=== PATIENT | male | born 1945 | race Hispanic/Latino ===

== ENCOUNTER 2019-06-15 12:16 | Observation (INO) | payer MEDICARE ==
--- NOTE | 2019-06-13 10:50 | Anesthesia Consultation ---
Anesthesia Consult and Med Hx Date of service: 06/15/19 - Airway Anesthetic Teeth Evaluation: Good, Crowns ROM Head & Neck: Adequate Mental/Hyoid Distance: Adequate Mallampati Class: Class II Intubation Access Assessment: Good - Pre-Operative Health Status ASA Pre-Surgery Classification: ASA3 Proposed Anesthetic Plan: General - Pulmonary Hx Smoking: Yes (STOPPED X 40 YRS) Hx Sleep Apnea: No (RUDDY PRE SCREEN HIGH RISK.) - Cardiovascular System Hx Hypertension: Yes (X 10 YRS) Hx Coronary Artery Disease: Yes (Stent in 2014 and in 2016. 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 Denies sympto) Hx Heart Attack/AMI: No (Pt states can climb two flights of stairs) - Endocrine Hx Non-Insulin Dependent Diabetes: Yes Hx Hypothyroidism: Yes (ON DAILY MEDS (THYROID REMOVED DUE TO CANCER)) - Other Systems Hx Cancer: Yes (Thyroid)
[2019-06-13 11:07] LABS: Basophils # (Auto) 0.1 K/mm3 (0.0-0.1); Basophils % (Auto) 0.6 % (0.0-1.8); Eosinophils # (Auto) 0.1 K/mm3 (0.0-0.4); Eosinophils % (Auto) 1.4 % (0.0-4.3); Hematocrit 40.8 % (35.5-45.6); Hemoglobin 13.7 gm/dl (11.8-15.2); Lymphocytes # (Auto) 1.4 K/mm3 (1.2-5.4); Lymphocytes % (Auto) 17.5 % (13.4-35.0); Mean Corpuscular HGB Conc 34 % (32-34); Mean Corpuscular Volume 95 fl (84-94); Monocytes # (Auto) 0.7 K/mm3 (0.0-0.8); Monocytes % (Auto) 8.5 % (0.0-7.3); Platelet Count 192 K/mm3 (140-440); Red Blood Count 4.32 M/mm3 (3.65-5.03); Red Cell Distribution Width 13.2 % (13.2-15.2)
[2019-06-13 11:15] LABS: INR 1.04 (0.87-1.13)
[2019-06-13 11:16] LABS: Partial Thromboplastin Time 30.5 Sec. (24.2-36.6)
[2019-06-13 11:28] LABS: Alanine Aminotransferase 59 units/L (7-56); Albumin 3.9 g/dL (3.9-5); BUN/Creatinine Ratio 21; Blood Urea Nitrogen 19 mg/dL (9-20); Calcium 10.4 mg/dL (8.4-10.2); Hemolysis Index 16
[2019-06-15] MEDS ORDERED: dexAMETHasone 20 MG/5 ML VIAL ONE (12:25)
[2019-06-15] MEDS ORDERED: fentaNYL 100 MCG/2 ML INJ ONE (12:25)
[2019-06-15] MEDS ORDERED: LIDOCAINE MPF (2%) 20 MG/1 ML VIAL 5 ML ONE (12:25)
[2019-06-15] MEDS ORDERED: ONDANSETRON 4 MG/2 ML INJ ONE (12:25)
[2019-06-15] MEDS ORDERED: PROPOFOL 200 MG/20 ML VIAL IV ONE (12:25)
[2019-06-15] MEDS ORDERED: HYDROmorphone 1 MG/1 ML INJ ONE ×4 (12:44→17:01)
--- NOTE | 2019-06-15 12:44 | Anesthesia Day of Surgery ---
Anesthesia Day of Surgery - Day of Surgery Patient Examined: Yes Patient H&P Reviewed: Yes Patient is NPO: Yes Beta Blockers: Yes
[2019-06-15] MEDS ORDERED: METOPROLOL TARTRATE 25 MG TAB PO ONE (12:45)
[2019-06-15] MEDS: SODIUM CHLORIDE 0.9% 1000 ML 1,000 ML IV SCH (12:45)
[2019-06-15] MEDS ORDERED: ceFAZolin/STERILE WATER 2 GM/20 ML SYRINGE IV NR (13:09)
[2019-06-15] MEDS ORDERED: NALOXONE 0.4 MG/1 ML INJ IV PRN (13:42)
[2019-06-15] MEDS ORDERED: SODIUM CHLORIDE 0.9% IRR 1,000 ML BOTTLE IR PRN (13:42)
[2019-06-15] MEDS ORDERED: ONDANSETRON 4 MG ODT TAB PO PRN (13:42)
[2019-06-15] MEDS ORDERED: ZOLPIDEM 5 MG TAB PO PRN (13:42)
--- NOTE | 2019-06-15 13:47 | Post Operative Note ---
Date of procedure: 06/15/19 Pre-op diagnosis: aur Post-op diagnosis: same Findings: bph Procedure: cysto turp Anesthesia: GETA Surgeon: OJLIE ADDISON Estimated blood loss: 50-100ml Pathology: list (prostate chips) Specimen disposition: to lab Condition: stable Disposition: PACU
[2019-06-15] MEDS ORDERED: PHENYLEPHRINE 10 MG/1 ML INJ SDV ONE (13:53)
[2019-06-15] MEDS ORDERED: GENTAMICIN/NS 80 MG/100 ML 100 ML IV ONE (14:00)
[2019-06-15] MEDS ORDERED: D5W/0.45% NACL/KCL 20 MEQ 20 MEQ/1,000 ML BAG IV SCH (14:00)
[2019-06-15] MEDS ORDERED: SODIUM CHLORIDE 0.9% IRRIG SOLN 3000 ML IR ONE ×2 (14:05)
[2019-06-15] MEDS ORDERED: LACTATED RINGERS 1,000 ML ONE ×2 (14:29→16:16)
[2019-06-15] MEDS ORDERED: ePHEDrine SULFATE 50 MG/1 ML INJ ONE (14:30)
--- NOTE | 2019-06-15 15:39 | Operative Report ---
PREOPERATIVE DIAGNOSES: Urinary retention, very large prostate middle lobe. POSTOPERATIVE DIAGNOSES: Urinary retention, very large prostate middle lobe. PROCEDURE: Cystoscopy, transurethral resection of prostate. Cystogram. SURGEON: Dr. Light. ANESTHESIA: General. FINDINGS: This is a gentleman with a very large prostate, could not urinate with multiple voiding trials. He has a bladder contraction, is weak, but he does have a contraction, now presents for treatment. DESCRIPTION OF PROCEDURE: The patient was brought to the operating room and placed on the operating table. Following induction of anesthesia, placed in lithotomy position, prepped and draped in usual sterile fashion. Cystourethroscopy showed trilobar hypertrophy. We could not see the orifices at this time because of the middle lobe. At this point, the middle lobe was resected and the chips were evacuated out. There were lobes coming in from the right side as well and resection of the right side was carried out. A large chunk of prostate came into the bladder. Once we evacuated all the chips, we could not get that trunk of prostate out because it was too big through the bipolar. We placed the 27 resectoscope under direct vision and using the loop, we were able to snare it and extracted a large chunk of prostate. The patient tolerated the procedure well. Estimated blood loss 100 mL. No significant complication. Cystogram showed a very elevated bladder, large prostate with no extravasation. The patient tolerated the procedure well and brought to recovery room in stable condition. Family notified. JOB# [id number] LUKE/BLAKE
[2019-06-15] MEDS: HYDROmorphone 1 MG/1 ML INJ IV PRN ×2 (15:59→17:01)
[2019-06-15] MEDS ORDERED: ONDANSETRON 4 MG/2 ML INJ IV PRN (16:00)
[2019-06-15] MEDS ORDERED: hydrALAZINE 20 MG/1 ML INJ ONE (16:11)
[2019-06-15] MEDS ORDERED: hydrALAZINE 20 MG/1 ML INJ IV ONE (16:11)
[2019-06-15 16:32] LABS: Hematocrit 38.2 % (35.5-45.6); Hemoglobin 12.7 gm/dl (11.8-15.2); Mean Corpuscular HGB Conc 33 % (32-34); Mean Corpuscular Volume 95 fl (84-94); Platelet Count 191 K/mm3 (140-440); Red Blood Count 4.01 M/mm3 (3.65-5.03); Red Cell Distribution Width 13.3 % (13.2-15.2)
[2019-06-15] MEDS ORDERED: SODIUM CHLORIDE IRRI 2000 ML 4,000 ML ONE (16:39)
[2019-06-15 16:52] LABS: BUN/Creatinine Ratio 17; Blood Urea Nitrogen 17 mg/dL (9-20); Calcium 9.6 mg/dL (8.4-10.2); Hemolysis Index 3
[2019-06-15] MEDS ORDERED: SODIUM CHLORIDE IRRI 2000 ML 2,000 ML ONE (17:06)
--- NOTE | 2019-06-15 17:25 | Fluoroscopy Report ---
4 fluoroscopic images submitted Indication: Intraoperative localization Impression: 4 images of abdomen were submitted for documentation purposes with radiology involvement . A TURP was performed followed by cystogram. Please refer to the operative note for complete detail s. Fluoroscopic time: 8 seconds Signer Name: Cy Ulloa MD Signed: 06/15/2019 5:21 PM Workstation Name: [id number]
[2019-06-15] MEDS: SODIUM CHLORIDE 0.9% IRRIG SOLN 2000 ML IR SCH ×2 (21:08→22:15)
[2019-06-15] MEDS: ceFAZolin/NS 1 GM/50 ML 1 GM/50 ML BAG IV SCH (22:15)
[2019-06-16] MEDS: oxyCODONE /ACETAMINOPHEN 5-325MG TAB PO PRN ×2 (01:31→10:04)
[2019-06-16] MEDS: SODIUM CHLORIDE 0.9% IRRIG SOLN 2000 ML IR SCH ×3 (01:48→05:57)
[2019-06-16] MEDS: SODIUM CHLORIDE 0.9% 1000 ML 1,000 ML IV SCH (03:33)
[2019-06-16] MEDS: ceFAZolin/NS 1 GM/50 ML 1 GM/50 ML BAG IV SCH (05:56)
[2019-06-16 06:38] LABS: Basophils % (Auto) 0.3 % (0.0-1.8); Eosinophils % (Auto) 0.3 % (0.0-4.3); Hematocrit 36.5 % (35.5-45.6); Hemoglobin 12.2 gm/dl (11.8-15.2); Lymphocytes # (Auto) 1.9 K/mm3 (1.2-5.4); Lymphocytes % (Auto) 15.5 % (13.4-35.0); Mean Corpuscular HGB Conc 33 % (32-34); Mean Corpuscular Volume 95 fl (84-94); Monocytes # (Auto) 1.1 K/mm3 (0.0-0.8); Platelet Count 195 K/mm3 (140-440); Red Blood Count 3.86 M/mm3 (3.65-5.03); Red Cell Distribution Width 13.2 % (13.2-15.2)
[2019-06-16 07:01] LABS: BUN/Creatinine Ratio 16; Blood Urea Nitrogen 14 mg/dL (9-20); Calcium 9.6 mg/dL (8.4-10.2); Hemolysis Index 19
--- NOTE | 2019-06-16 08:44 | Post Anesthesia Evaluation ---
- Post Anesthesia Evaluation Patient Participated: Yes Airway Patent: Yes Stable Respiratory Function: Yes Nausea/Vomiting: No Temp > 96.8F: Yes Pain Manageable: Yes Adequeate Hydration: Yes Anesthesia Complications: No Block Receding Appropriately: Not Applicable Patient on Ventilator: No
[2019-06-16 12:36] VITALS: BP 128/62
--- NOTE | 2019-06-16 13:37 | Short Stay Summary ---
Short Stay Documentation Date of service: 06/16/19 - History H&P: obtained from office - Allergies and Medications Current Medications: Allergies No Known Allergies Allergy (Verified 06/07/19 10:16) Home Medications Medication Instructions Recorded Confirmed Last Taken Type Allopurinol [Zyloprim] 100 mg PO BID 06/07/19 06/07/19 1 Week Ago History ~06/08/19 Aspirin EC [Halfprin EC] 81 mg PO QDAY 06/07/19 06/07/19 1 Week Ago History ~06/08/19 AtorvaSTATin [Lipitor] 40 mg PO QHS 06/07/19 06/07/19 1 Week Ago History ~06/08/19 Clopidogrel [Plavix] 75 mg PO QDAY 06/07/19 06/07/19 1 Week Ago History ~06/08/19 Cyanocobalamin (Vitamin B-12) 2,500 mcg PO DAILY 06/07/19 06/07/19 1 Week Ago History [Vitamin B12] ~06/08/19 Insulin Detemir [Levemir Flextouch] 100 unit SQ DAILY 06/07/19 06/15/19 06/14/19 History Levothyroxine Sodium [Synthroid] 137 mcg PO DAILY 06/07/19 06/15/19 06/15/19 05:30 History Losartan [Cozaar] 50 mg PO QDAY 06/07/19 06/07/19 1 Week Ago History ~06/08/19 Metoprolol [Lopressor] 25 mg PO BID 06/07/19 06/07/19 1 Week Ago History ~06/08/19 hydroCHLOROthiazide [Hctz] 12.5 mg PO QDAY 06/07/19 06/07/19 1 Week Ago History ~06/08/19 Active Medications Hydromorphone HCl (Dilaudid) 0.5 mg IV Q10MIN PRN PRN Reason: Pain , Severe (7-10) Last Admin: 06/15/19 17:01 Dose: 0.5 mg Documented by: Sodium Chloride (Nacl 0.9% 1000 Ml) 1,000 mls @ 75 mls/hr IV DIRECT JUDY Last Admin: 06/16/19 03:33 Dose: 75 mls/hr Documented by: Potassium Chloride/Dextrose/Sod Cl (D5w/0.45% Nacl/Kcl 20 Meq) 20 meq in 1,000 mls @ 125 mls/hr IV DIRECT JUDY Cefazolin Sodium (Ancef/Ns 1 Gm/50 Ml) 1 gm in 50 mls @ 100 mls/hr IV Q8H JUDY; Protocol Stop: 06/16/19 22:29 Last Admin: 06/16/19 05:56 Dose: 100 mls/hr Documented by: Naloxone HCl (Naloxone) 0.1 mg IV Q2MIN PRN PRN Reason: Res Rate </= 8 or 02 SAT < 92% Ondansetron HCl (Zofran Odt) 4 mg PO Q8H PRN PRN Reason: Nausea And Vomiting Ondansetron HCl (Zofran) 4 mg IV ONCE PRN PRN Reason: Nausea And Vomiting Oxycodone/Acetaminophen (Percocet 5/325) 2 tab PO Q6H PRN PRN Reason: Pain, Moderate (4-6) Last Admin: 06/16/19 10:04 Dose: 2 tab Documented by: Sodium Chloride (Nacl 0.9%) 30 ml IR Q2H PRN PRN Reason: Wound Care Sodium Chloride (Nacl 0.9%) 2,000 ml IR DIRECT JUDY Last Admin: 06/16/19 05:57 Dose: 2,000 ml Documented by: Zolpidem Tartrate (Ambien) 5 mg PO QHS PRN PRN Reason: Sleep - Brief post op/procedure progress note Date of procedure: 06/16/19 Pre-op diagnosis: BPH Post-op diagnosis: same Procedure: CYSTO, TURP Anesthesia: GETA Surgeon: JOLIE ADDISON Estimated blood loss: none Specimen disposition: to lab (PROSTATE CHIPS) Condition: stable - Hospital course Hospital course: & NURSE AT BEDSIDE NO ISSUES NO CLOTS PINK URINE HOME WITH ABX & NORCO - Disposition Condition at discharge: Stable Disposition: [id number]-01 TO HOME OR SELFCARE Short Stay Discharge Plan Follow up with: PRAMOD DUENAS MD [Primary Care Provider] - 7 Days
== END 2019-06-16 14:12 | disposition home or self-care (01) ==
LOC: OR 12:16 → 3B-SURG 13:42
PROVIDERS: ADMIT Urology; ATTEND Urology
DX: N40.0 Benign prostatic hyperplasia without lower urinary tract symptoms (principal); R33.9 Retention of urine, unspecified; Z79.82 Long term (current) use of aspirin
CPT/HCPCS: 36415; 52601; 74430; 80048; 80053; 82962; 85025; 85027; 85610; 85730; 86850; 86900; 86901; 88305; 88342; 96365; 96366; 96375; 96376; A4217; G0378; J0360; J0690; J1170; J1580; J2370; J2405; J2704; J3010; J7030; J7120; Q9967; 88341; 88344; J1100